=== PATIENT | female | born 1995 | race Caucasian/White ===

== ENCOUNTER 2016-04-25 16:29 | Emergency (ER) | payer OTHER ==
[~2016-04-25] VITALS: Wt 90.9 kg
[2016-04-25 19:34] LABS: URINE BLOOD (Dip) POC Trace-intact (NEGATIVE)
--- NOTE | 2016-04-25 20:07 | ERD ---
ER Documentation Chief Complaint Date/Time DATE: 04/25/16 TIME: 20:06 Chief Complaint DYSURIA SINCE YESTERDAY, NO NAUSEA NO VOMIITING. HPI Patient is a 20-year-old female who presents to the ED with dysuria, urgency and frequency x 1 day. She denies flank pain, fever or chills. Denies hematuria. Denies abdominal pain, nausea, vomiting or diarrhea. States that she has abnormal periods and states that her last normal menstrual period was in January. She denies vaginal bleeding, pelvic pain or abdominal pain. Denies chest pain, shortness of breath or difficulty breathing. Denies headache or dizziness. Denies leg pain or swelling no other complaints. ROS All systems reviewed and are negative except as per history of present illness. Medications Home Meds Active Scripts Phenazopyridine Hcl* (Pyridium*) 100 Mg Tab, 100 MG PO TID Y for URINARY PAIN, # 8 TAB Prov:KRISTI SHARP PA-C 04/25/16 PMhx/Soc Medical and Surgical Hx: pt denies Medical Hx, pt denies Surgical Hx Hx Alcohol Use: No Hx Substance Use: No Hx Tobacco Use: No Smoking Status: Never smoker Physical Exam Vitals Vital Signs Date Time Temp Pulse Resp B/P Pulse Ox O2 Delivery O2 Flow Rate FiO2 04/25/16 20:49 80 16 128/77 100 Room Air 04/25/16 16:31 98.9 96 20 129/64 100 Physical Exam GENERAL: Well-developed, well-nourished female. Appears in no acute distress. LUNG: Clear to auscultation bilaterally. No rhonchi, wheezing, rales or coarse breath sounds. HEART: Regular rate and rhythm. No murmurs, rubs or gallops. ABDOMEN: No scars, ecchymosis or rashes noted. Soft, nontender, and nondistended. Positive bowel sounds in all four quadrants. No rebound tenderness , no guarding. (-) McBurneys point tenderness. No CVA tenderness. BACK: No midline tenderness. SKIN: Normal color. Warm and dry. No rashes or lesions. Capillary refill < 2 seconds Results 24 hrs Laboratory Tests Test 04/25/16 19:36 Bedside Urine Blood Trace-intact Bedside Urine Glucose (UA) Negative Bedside Urine Ketones (LAB) Negative Bedside Urine Leukocyte Esterase (L Negative Bedside Urine Nitrite (LAB) Negative Bedside Urine Protein (LAB) Negative Bedside Urine pH (LAB) 7.0 Procedures/MDM ER COURSE: I kept the patient and/or family informed of laboratory and diagnostic imaging results throughout the emergency room course. LAB INTERPRETATION: UA showed no evidence of leukocytes, nitrites or hematuria. Urine test was negative. MEDICAL DECISION MAKING: This is a 20-year-old female who presents with dysuria and urgency. Vital signs were reviewed. Patient is afebrile. Patient is not hypoxic. Patient is not toxic or ill-appearing. Patient's urine does not show signs of infection. I will be sending her urine for culture and for gonorrhea and chlamydia and treating her for her symptoms with Pyridium. I do not think any further evaluation and imaging studies is necessary at this time. Low suspicion for ACS , AAA, perforated ulcer, bowel obstruction, cholecystitis, choledocholithiasis, cholangitis, pancreatitis, hepatic abscess, appendicitis, diverticulitis, gastroenteritis, hepatitis, peptic ulcer disease, HELLP syndrome. DISCHARGE: At this time, patient is stable for discharge and outpatient management with no new complaints during the ER course. Patient was sent home with Pyridium. Patient will be discharged home with instructions to recheck for new or worsening symptoms such as fever, nausea, weakness, LOC and to follow up with primary care in the next 1-2 days. Patient was advised to return to the ER for any new or worsening symptoms. Plan was discussed and patient and/or family understands and agrees. Home instructions were given. Departure Diagnosis: Primary Impression: Dysuria Condition: Stable KRISTI SHARP PA-C Apr 25, 2016 20:07
[2016-04-25] MEDS ORDERED: PHEN-537 PO (20:20)
[2016-04-25 20:49] VITALS: BP 128/77; PULSE 80; RESP 16
== END 2016-04-25 20:52 | disposition home or self-care (01) ==
LOC: FTE 16:29
DX: R30.0 Dysuria (principal)
CPT/HCPCS: 81003; 87086; 87591; Z7502; 99283